=== PATIENT | female | born 1995 | race Caucasian/White ===

== ENCOUNTER 2016-04-16 00:44 | Emergency (ER) | payer BC, OTHER ==
[~2016-04-16] VITALS: Ht 157.5 cm; Wt 61.8 kg
[2016-04-16 00:49] VITALS: Ht 157.5 cm; Wt 61.8 kg
--- NOTE | 2016-04-16 01:16 | EMERGENCY ROOM VISIT NOTE ---
History Report prepared by Desireeibherson: Darion Franco Under the Supervision of: Dr. Chacho Ramos M.D. First contact with patient: 00:51 Chief Complaint: ALCOHOL OVERDOSE Stated Complaint: ALCOHOL OVERDOSE Nursing Triage Summary: Patient arrives to ED via BLS transport after being found downtown at the [facility] bus stop hugging a traffic sign and sleeping. [facility] business intelligence analyst brought her into [facility] office so that she would stay warm and called EMS. Patient refused blood pressure in the field. Patient told EMS that she was drinking 3 shots and "a couple" beers. History of Present Illness HPI is limited due to alcohol intoxication. The patient is a 20 year old female who presents to the Emergency Room due to alcohol intoxication. [place] outside of the [facility] bus station on [facility]. Per a [employer] intelligence analyst the patient was hugging a traffic sign sleeping. The business intelligence analyst took the patient inside to make sure she stayed warm. She then became unresponsive inside the bus station and the driver license reviewing officer called for EMS. Source of History: nursing staff History Limited By: intoxication Review of Systems Limited due to alcohol intoxication. Current/Historical Medications Scheduled PRN Epinephrine (Epipen), 0.3 MG IM UD PRN for ALLERGIC REACTION Allergies Coded Allergies: Nut Tree (Verified Allergy, Severe, ANAPHYLAXIS, 04/16/16) WALNUTS,BRAZIL,HOMER LINARES Physical Exam Vital Signs Date Time Temp Pulse Resp B/P Pulse Ox O2 Delivery O2 Flow Rate FiO2 04/16/16 02:25 93 18 100 Room Air 04/16/16 01:58 87 18 93/63 97 Room Air 04/16/16 00:58 81 18 121/71 98 Room Air 04/16/16 00:58 92 04/16/16 00:49 91 20 121/71 96 Room Air Physical Exam GENERAL: Patient is moderately intoxicated. Smells of alcohol. Well appearing and in no acute distress. HEAD: No evidence of Trauma. AT/NC EYES: [] conjunctiva. Normal EOM. Pupils equal/reactive. ENT: Mucous membranes moist, no nasal congestion, . NECK: No step-offs, no adenopathy, no meningismus, trachea is midline. LUNGS: No dyspnea. Clear to auscultation and equal bilaterally. No wheeze, no rhonchi. HEART: Regular rate and rhythm. No murmurs, rubs, gallops appreciated. ABDOMEN: Soft, nontender, bowel sounds positive, no masses appreciated, no peritonitis. BACK: No midline tenderness, no CVA tenderness EXTREMITIES: Normal motion all extremities, no cyanosis, no edema. NEUROLOGIC: Intoxicated. Aware she is in the hospital, unaware of how she got here. Her speech is slurred. No acute motor or sensory deficits, no focal weakness, cranial nerves grossly intact. SKIN: No rash, no jaundice, no diaphoresis. Medical Decision & Procedures Laboratory Results 04/16/16 01:22 Test 04/16/16 01:22 Anion Gap 13.0 mmol/L (3-11) Est Creatinine Clear Calc Drug Dose 83.7 ml/min Estimated GFR () 103.2 Estimated GFR (Non- 89.0 BUN/Creatinine Ratio 23.5 (10-20) Calcium Level 8.7 mg/dl (8.5-10.1) Human Chorionic Gonadotropin, Qual NEG (NEG) Ethyl Alcohol mg/dL 278.0 mg/dl (0-3) Laboratory results as reviewed by me. ED Course 0101: The patient was evaluated in room A9B. A complete history and physical exam was performed. 0223: I reevaluated the patient at this time. The patient had several friends in her room with her, who were willing to take her home. I discussed results and discharge instructions with her: She verbalized understanding and agreement. The patient is ready for discharge. Medical Decision Differential: Alcohol Intoxication, Drug Intoxication, Electrolyte Abnormality, Trauma, Intracranial Event, Toxicological, Excited Delirium, Serotonin Syndrome , amongst other pathologies entertained. 20 yr old intoxicated female brought in by EMS after being intoxicated at [facility] [email or web address]. Patient with no evidence nor history for trauma. Protecting airway and breathing comfortably throughout ED stay. A bit upset about whole ordeal but calmed significantly once friend's arrived. EtOH positive. Monitored and discharged when awake, alert, oriented and denies any complaints. Home with friends who note they feel comfortable watching her at home. She is in no distress and on talking to her privately she feels comfortable going home with them, in fact she was crying that they were here prior to their arrival. Impression Primary Impression: Alcohol abuse Additional Impression: Alcohol intoxication Scribe Attestation The scribe's documentation has been prepared under my direction and personally reviewed by me in its entirety. I confirm that the note above accurately reflects all work, treatment, procedures, and medical decision making performed by me. Departure Information Dispostion Home / Self-Care Referrals [facility] Patient Instructions Alcohol Intoxication - [facility], [facility]: [employer] Students and Alcohol Related Visits , My [facility] Additional Instructions Your alcohol level was very high at 278. Problem Qualifiers Additional Impression: Alcohol intoxication Complication of substance-induced condition: uncomplicated Qualified Codes: F10.120 - Alcohol abuse with intoxication, uncomplicated
[2016-04-16 01:51] LABS: BUN/CREATININE RATIO 23.5 (10-20); CALCIUM 8.7 mg/dl (8.5-10.1); CREATININE 0.92 mg/dl (0.60-1.20); POTASSIUM 3.7 mmol/L (3.5-5.1)
[2016-04-16] MEDS ORDERED: EPP3/2 IM (01:52)
[2016-04-16 01:58] VITALS: BP 93/63
[2016-04-16 02:13] LABS: PREG INTERNAL NEGATIVE QC NEG CLEAR BACKGROUND; PREG INTERNAL POSITIVE QC POS CONTROL LINE
[2016-04-16 02:25] VITALS: PULSE 93; O2SAT 100
== END 2016-04-16 02:45 | disposition home or self-care (01) ==
LOC: C.EDA 00:46
DX: F10.129 Alcohol abuse with intoxication, unspecified (principal); Y90.8 Blood alcohol level of 240 mg/100 ml or more; Z91.018 Allergy to other foods

== ENCOUNTER 2016-04-30 14:10 | Emergency (ER) | payer BC, OTHER ==
[~2016-04-30] VITALS: Ht 157.5 cm; Wt 65.5 kg
[2016-04-30 14:10] VITALS: TEMP 36.4; Ht 157.5 cm; Wt 65.5 kg
[~2016-04-30 14:10] MED LIST: EPP3/2 IM
--- NOTE | 2016-04-30 14:36 | EMERGENCY ROOM VISIT NOTE ---
History Report prepared by Raul: Eddie Baker Under the Supervision of: Dr. Chacho Ramos M.D. First contact with patient: 14:17 Chief Complaint: ALCOHOL OVERDOSE Stated Complaint: ALCOHOL OVERDOSE History of Present Illness The patient is a 20 year old female who presents to the Emergency Room with complaints of an alcohol overdose occurring prior to arrival. The patient states that he was at her apartment, and she was drinking vodka, and her friends left her. The patient denies any drug use. She additionally denies any suicidal or homicidal ideations. She states that her friends called the EMS for her. In reality she was stumbling around [facility]. History is limited due to intoxication. Source of History: patient History Limited By: intoxication Onset: prior to arrival Position: other (global) Quality: other (alcohol overdose) Review of Systems HPI is limited due to intoxication. Past Medical & Surgical Limited due to intoxication Family History Limited due to intoxication Social History Smoking Status: Never Smoker Alcohol Use: occasionally Housing Status: lives with friends Occupation Status: student Current/Historical Medications Scheduled PRN Epinephrine (Epipen), 0.3 MG IM UD PRN for ALLERGIC REACTION Allergies Coded Allergies: Nut Tree (Verified Allergy, Severe, ANAPHYLAXIS, 04/30/16) WALNUTS,BRAZIL,MILAGROS,PECANS Physical Exam Vital Signs Date Time Temp Pulse Resp B/P Pulse Ox O2 Delivery O2 Flow Rate FiO2 04/30/16 17:05 98 18 99 04/30/16 16:35 71 19 97 04/30/16 16:30 69 19 97 04/30/16 16:29 96/52 04/30/16 16:00 62 19 99 04/30/16 15:59 97/48 04/30/16 15:30 81 23 122/69 100 04/30/16 15:19 116/73 04/30/16 15:00 91 19 99 04/30/16 14:45 59 18 115/78 99 Room Air 04/30/16 14:18 79 04/30/16 14:10 36.4 87 20 134/81 87 Room Air Physical Exam GENERAL: Patient is moderately intoxicated. Smells of alcohol. Well appearing and in no acute distress. HEAD: No evidence of Trauma. AT/NC EYES: Injected conjunctiva. Normal EOM. Pupils equal/reactive. ENT: Mucous membranes moist, no nasal congestion, . NECK: No step-offs, no adenopathy, no meningismus, trachea is midline. LUNGS: No dyspnea. Clear to auscultation and equal bilaterally. No wheeze, no rhonchi. HEART: Regular rate and rhythm. No murmurs, rubs, gallops appreciated. ABDOMEN: Soft, nontender, bowel sounds positive, no masses appreciated, no peritonitis. BACK: No midline tenderness, no CVA tenderness EXTREMITIES: Normal motion all extremities, no cyanosis, no edema. NEUROLOGIC: Intoxicated. Oriented to place and time and events. No acute motor or sensory deficits, no focal weakness, cranial nerves grossly intact. SKIN: No rash, no jaundice, no diaphoresis. Medical Decision & Procedures Laboratory Results 04/30/16 15:34 Test 04/30/16 15:34 Anion Gap 11.0 mmol/L (3-11) Est Creatinine Clear Calc Drug Dose 111.3 ml/min Estimated GFR () 141.1 Estimated GFR (Non- 121.8 BUN/Creatinine Ratio 27.8 (10-20) Calcium Level 8.5 mg/dl (8.5-10.1) Human Chorionic Gonadotropin, Qual NEG (NEG) Ethyl Alcohol mg/dL 292.0 mg/dl (0-3) Laboratory results as reviewed by me. ED Course 1417: The patient was evaluated in room A9. A complete history and physical exam was performed. 1531: I reevaluated the patient, and she was awake and talking intoxicatedly. 1648: I reevaluated the patient, and she is still heavily intoxicated. She does not remember meeting me on multiple discussions. I talked with the patient's friends and told them that the patient will be here late into the night once she is completely sober. 1830: The patient will be signed out to Dr. Quach pending sobering up. Medical Decision Differential: Alcohol Intoxication, Drug Intoxication, Electrolyte Abnormality, Trauma, Intracranial Event, Toxicological, Excited Delirium, Serotonin Syndrome , amongst other pathologies entertained. 20 yr old intoxicated female brought in by EMS after being found stumbling downtown. Patient with no evidence nor history for trauma. Protecting airway and breathing comfortably throughout ED stay. EtOH positive. She is somewhat belligerent though is re-directable. Already known to me from he recent visit just 2 weeks ago for alcohol intoxication. She is accusatory of ED for not doing drug testing during her stay but I see no indication for this. She is clearly intoxicated and she clearly has an elevated ALYSSA which is once again elevated as it was just 2 weeks ago. She was much calmer last visit and given increased agitation this time I do not feel that sending her home with her sober friends is appropriate on this visit. She will stay in ED until fully sober then have further evaluation by Case Management and Dr Quach. She was medically stable and in no distress. Impression Primary Impression: Alcohol abuse Additional Impression: Alcohol intoxication Scribe Attestation The scribe's documentation has been prepared under my direction and personally reviewed by me in its entirety. I confirm that the note above accurately reflects all work, treatment, procedures, and medical decision making performed by me. Departure Information Dispostion Home / Self-Care Referrals [facility] Patient Instructions ED Alcohol Abuse, [facility]: [employer] Students and Alcohol Related Visits, My [facility] Additional Instructions This was your second visit for alcohol intoxication in last few weeks. Both times your alcohol level was quite elevated. This is a sign of alcohol abuse and may indicate you are in need for further intervention. We are always here to help if you feel you need help quitting. You should follow up with [facility] and consider AA meetings. Problem Qualifiers Additional Impression: Alcohol intoxication Complication of substance-induced condition: uncomplicated Qualified Codes: F10.120 - Alcohol abuse with intoxication, uncomplicated
[2016-04-30 16:06] LABS: BUN/CREATININE RATIO 27.8 (10-20); CALCIUM 8.5 mg/dl (8.5-10.1); CREATININE 0.71 mg/dl (0.60-1.20); POTASSIUM 3.9 mmol/L (3.5-5.1)
[2016-04-30 16:13] LABS: PREG INTERNAL NEGATIVE QC NEG CLEAR BACKGROUND; PREG INTERNAL POSITIVE QC POS CONTROL LINE
--- NOTE | 2016-04-30 21:47 | EMERGENCY ROOM VISIT NOTE ---
ED Visit Note First contact with patient: 19:53 I received this patient at change of shift signout from Dr. Ramos. Please see his note for complete history and physical. The patient presented to the emergency department for alcohol intoxication. The patient was evaluated multiple times. She was reevaluated by myself independently in the emergency department. She was awake alert and oriented times 3. She was able to care on a conversation without difficulty. She was no longer clinically intoxicated. I discussed the patient's laboratory results with her. She was encouraged to avoid any further alcohol intake. She was also encouraged to avoid any drug use. She was encouraged to follow-up with [facility] as soon as possible for further evaluation. She was also encouraged not to operate any heavy machinery including driving a vehicle for next 24 hours.
[2016-04-30 22:57] VITALS: BP 125/67; PULSE 91; O2SAT 95
== END 2016-04-30 22:58 | disposition home or self-care (01) ==
LOC: EDBD 14:10 → C.EDA 14:11
DX: F10.120 Alcohol abuse with intoxication, uncomplicated (principal)